=== PATIENT | male | born 1945 | race Caucasian/White ===

== ENCOUNTER 2021-06-21 07:45 | Day surgery (SDC) | payer OTHER ==
[~2021-06-21 07:45] MED LIST: Midazolam 1 MG/ML 2 ML SDV ONE; Propofol 200 MG/20 ML SDV ONE; fentaNYL 100 MCG/2 ML SDV ONE
[2021-06-21] MEDS ORDERED: Sodium Chloride 0.9% 1,000 ML IV SCH (08:30)
--- NOTE | 2021-06-21 14:20 | OR ---
DATE OF PROCEDURE: 06/21/2021 SURGEON: Tee Horton MD PROCEDURE: Colonoscopy. FINDINGS: 1. Poor colon prep. 2. Diverticulosis throughout the entire colon without evidence of diverticulitis or bleeding. COMPLICATIONS: None. KIDS ACTIVITIES COACH: None. ANESTHESIA: MAC. PREOPERATIVE DIAGNOSIS: Screening colonoscopy/history of colon polyps. POSTOPERATIVE DIAGNOSIS: Screening colonoscopy/history of colon polyps. RISKS: Risks, benefits, alternatives, and limitations including but not limited to infection, bleeding, perforation, false positives, and false negatives were explained to the patient who wished to proceed. PROCEDURE IN DETAIL: Patient was placed in left lateral decubitus position. Digital rectal exam was performed without abnormality. Scope was introduced and advanced atraumatically to the ileocecal valve. A photo was taken of the appendiceal orifice. The scope was brought back to the ascending, transverse, descending colon, and retroflexed. No evidence of old or new blood. No masses. No polyps. The patient did have diverticulosis described as throughout the entire colon without evidence of bleeding or diverticulitis. The prep was described as poor with a large amount of solid and liquid stool remaining. Nonetheless, approximately 80% to 90% of luminal surface could be seen after suction irrigation techniques. No abnormalities on retroflexion. Greater than 8 minutes spent removing the scope. The patient tolerated the procedure well. Tee Horton MD /[id number]
== END 2021-06-21 10:55 | disposition home or self-care (01) ==
LOC: JP.SDS 07:45
PROVIDERS: ATTEND Surgery
DX: Z12.11 Encounter for screening for malignant neoplasm of colon (principal); K57.30 Diverticulosis of large intestine without perforation or abscess without bleeding; I25.2 Old myocardial infarction; E11.9 Type 2 diabetes mellitus without complications; K21.9 Gastro-esophageal reflux disease without esophagitis; Z86.010 Personal history of colon polyps
CPT/HCPCS: 45378; J2250; J2704; J3010; J7030

== ENCOUNTER 2022-11-11 07:54 | Day surgery (SDC) | payer MEDICARE ==
[2022-11-11] MEDS ORDERED: Propofol 200 MG/20 ML SDV ONE (09:05)
[2022-11-11] MEDS ORDERED: fentaNYL 50 MCG/ML SDV ONE (09:06)
[2022-11-11] MEDS ORDERED: Dextrose 5%-Lactated Ringers 1,000 ML IV SCH (09:30)
[2022-11-11 12:32] LABS: ESTIMATED GFR 92 mL/min (>60)
== END 2022-11-11 12:53 | disposition home or self-care (01) ==
LOC: JP.SDS 07:54
PROVIDERS: ATTEND Surgery
DX: K62.5 Hemorrhage of anus and rectum (principal); E11.22 Type 2 diabetes mellitus with diabetic chronic kidney disease; N18.9 Chronic kidney disease, unspecified; J44.9 Chronic obstructive pulmonary disease, unspecified; G47.33 Obstructive sleep apnea (adult) (pediatric); Z20.822 Contact with and (suspected) exposure to COVID-19; Z86.010 Personal history of colon polyps
CPT/HCPCS: 36415; 45330; 80053; 83735; 83880; 84100; 85027; J2704; J3010; U0002

== ENCOUNTER 2022-11-12 08:35 | Day surgery (SDC) | payer MEDICARE ==
[~2022-11-12 08:35] MED LIST changes: +Dexamethasone 4 MG/ML SDV ONE; +Glycopyrrolate 0.2 MG/ML 5 ML MDV ONE; -Midazolam 1 MG/ML 2 ML SDV ONE; +Neostigmine Methylsulfate 1 MG/ML 5 ML Syringe ONE; +Ondansetron 4 MG/2 ML SDV ONE; +Rocuronium 50 MG/5 ML Vial ONE; +Succinylcholine 200 MG/10 ML MDV ONE; -fentaNYL 100 MCG/2 ML SDV ONE; +fentaNYL 250 MCG/5 ML SDV ONE
[2022-11-12] MEDS ORDERED: Acetaminophen 500 MG Tab PO ONE (09:15)
[2022-11-12] MEDS ORDERED: Lactated Ringers 1,000 ML IV SCH (09:30)
[2022-11-12] MEDS ORDERED: Albuterol/Ipratropium 3.0-0.5 MG/3 ML Neb Soln NEB ONE (10:00)
[2022-11-12] MEDS ORDERED: Bupivacaine 0.5%/EPINEPHrine 1:200,000 50 ML MDV ONE (10:02)
[2022-11-12] MEDS ORDERED: Hydrogen Peroxide 3% Top Soln 240 ML Bottle ONE (10:03)
[2022-11-12] MEDS ORDERED: Meropenem 500 MG in Sodium Chloride 0.9% 50 ML IV ONE (10:15)
== END 2022-11-12 15:59 | disposition home or self-care (01) ==
LOC: JP.SDS 08:35
PROVIDERS: ATTEND Surgery
DX: K60.3 Anal fistula (principal); N18.9 Chronic kidney disease, unspecified; I12.9 Hypertensive chronic kidney disease with stage 1 through stage 4 chronic kidney disease, or unspecified chronic kidney disease; E11.22 Type 2 diabetes mellitus with diabetic chronic kidney disease; G47.33 Obstructive sleep apnea (adult) (pediatric); K21.9 Gastro-esophageal reflux disease without esophagitis; F32.A Depression, unspecified; J44.9 Chronic obstructive pulmonary disease, unspecified; Z79.899 Other long term (current) drug therapy; Z87.891 Personal history of nicotine dependence
CPT/HCPCS: 46060; 88304; 93005; 94640; A9270; J0330; J1100; J2185; J2405; J2704; J2710; J3010; J3490; J7120; J7620